=== PATIENT | male | born 1945 | race Caucasian/White ===

== ENCOUNTER 2016-11-11 02:27 | Emergency (ER) | payer MEDICARE ==
[~2016-11-11 02:27] MED LIST: AMOXICILLIN PO; APRESOLINE PO; ASPIRIN PO; ATENOLOL PO; GLUCOTROL; HCTZ PO; HYDROCHLOROTH12.5 MG; LISINOPRIL PO; MUCINEX DM1 TAB.SR . PO; NAPROXEN PO; NEURONTIN; PHARMACY; PROTONIX PO; REGLAN PO; ROCEPHIN IV; TENORMIN25 M1; VANCOCIN HCL250 MG INJ
== END 2016-11-11 05:33 | disposition home or self-care (01) ==
LOC: CED 02:27
DX: E11.649 Type 2 diabetes mellitus with hypoglycemia without coma (principal); I10 Essential (primary) hypertension
CPT/HCPCS: 36415; 82947; 96374; 99284

== ENCOUNTER 2016-11-11 22:13 | Emergency (ER) | payer MEDICARE | END 2016-11-11 23:35 | disposition home or self-care (01) | LOC: CED 22:13 | DX: E11.649 Type 2 diabetes mellitus with hypoglycemia without coma (principal); I25.10 Atherosclerotic heart disease of native coronary artery without angina pectoris | CPT/HCPCS: 82947; 99282 ==